=== PATIENT | male | born 1955 | race Caucasian/White ===

== ENCOUNTER 2020-01-04 14:51 | Emergency (ER) | payer BC, OTHER ==
[~2020-01-04] VITALS: Ht 188 cm; Wt 97.5 kg
[2020-01-04] MEDS ORDERED: LOSARTAN POTAS100 MG PO (15:26)
[2020-01-04] MEDS ORDERED: LEVOTHYROXINE150 MCG PO (15:26)
[2020-01-04] MEDS ORDERED: CARVEDILOL6.25 M1 PO (15:26)
[2020-01-04] MEDS ORDERED: CLONIDINE HCL0.1 MG PO (15:27)
[2020-01-04] MEDS ORDERED: VERAPAMIL HCL40 MG PO (15:27)
[2020-01-04] MEDS ORDERED: CARVEDILOL25 MG PO (15:28)
[2020-01-04 16:42] VITALS: BP 184/93
== END 2020-01-04 16:42 | disposition home or self-care (01) ==
LOC: ER 14:51
DX: S61.112A Laceration without foreign body of left thumb with damage to nail, initial encounter (principal); I10 Essential (primary) hypertension; Z88.8 Allergy status to other drugs, medicaments and biological substances; W26.8XXA Contact with other sharp object(s), not elsewhere classified, initial encounter; Y93.89 Activity, other specified; Y92.89 Other specified places as the place of occurrence of the external cause; Y99.8 Other external cause status